=== PATIENT | female | born 1950 | race Caucasian/White ===

== ENCOUNTER → 2023-07-11 13:23 | Outpatient (CLI) | payer MEDICARE, SELFPAY ==
--- NOTE | 2023-07-11 13:26 | DI.RAD.S_ITS ---
PROCEDURE: XR CHEST 2V INDICATIONS: abnormal EKG, MASON, worsening SOB, hx of tobacco TECHNIQUE: 2 views of the chest were acquired. COMPARISON: None. FINDINGS: Surgical changes and devices: None. Lungs and pleura: Right lower lobe airspace opacity. Mediastinum: Mediastinal contours are normal. Heart size is normal. Bones and chest wall: No suspicious bony abnormalities. Soft tissues appear unremarkable. IMPRESSION: Right lower lobe airspace opacity. Consider chest CT for confirmation in the absence of fever or leukocytosis in order to exclude malignancy. Dictated by: Doni De Oliveira M.D. on 07/11/2023 at 15:38 Approved by: Doni De Oliveira M.D. on 07/11/2023 at 15:44
== END ==
LOC: RAD 13:26
PROVIDERS: PCP Family Medicine; Referring Provider Family Medicine; Visit Provider Family Medicine
DX: R91.8 Other nonspecific abnormal finding of lung field (principal); R06.09 Other forms of dyspnea; R60.0 Localized edema; R94.31 Abnormal electrocardiogram [ECG] [EKG]; R63.4 Abnormal weight loss; Z87.891 Personal history of nicotine dependence
CPT/HCPCS: 71046

== ENCOUNTER → 2023-07-13 14:49 | Outpatient (CLI) | payer MEDICARE, SELFPAY ==
--- NOTE | 2023-07-13 14:51 | DI.CT.S_ITS ---
PROCEDURE: CT CHEST WO CON INDICATIONS: SOB, hx tobacco, abnormal CXR TECHNIQUE: Noncontrast 5 mm thick sections acquired from the pulmonary apices to the posterior costophrenic angles. 1 mm lung window, 5 mm thick coronal and sagittal and 7 mm axial MIP reformats were then acquired. For radiation dose reduction, the following was used: automated exposure control, adjustment of mA and/or kV according to patient size. COMPARISON: [facility], CR, XR CHEST 2V, 07/11/2023, 13:34. FINDINGS: Image quality: Diagnostic. Lower Neck: No enlarged lymph nodes. Thyroid: No thyroid nodules which require sonographic follow up, per consensus guidelines. Axillae: No enlarged lymph nodes. Chest Wall: Unremarkable. Bones: No suspicious osseous lesion. Lungs and Pleura: No pneumothorax or pleural effusions. Severe emphysematous change. No acute airspace opacity. Secretions in the lower trachea. Areas of bronchial wall thickening. No significant bronchiectasis. No mass or significant pulmonary nodules. Heart: Heart size is normal. Mild coronary artery calcifications. No pericardial effusion. Thoracic Vessels: The aorta and pulmonary arteries demonstrate normal size. Mediastinum and [place]: No enlarged lymph nodes. Esophagus: No wall thickening. No hiatal hernia. Upper Abdomen: Low-density cyst at the superior pole of the left kidney. IMPRESSION: 1. No acute airspace opacity. No pleural effusion. 2. Severe emphysematous change. Areas of bronchial wall thickening. Secretions in the trachea. This could be due to chronic bronchitis. 3. No adenopathy. No mass or significant pulmonary nodules. Dictated by: Edinson Gamez M.D. on 07/13/2023 at 16:13 Approved by: Edinson Gamez M.D. on 07/13/2023 at 16:20
[2023-07-13 15:22] LABS: Basophils Absolute Auto 0 /uL (0-100); Basophils Percent Auto 0.6 % (0-2); Eosinophils Absolute Auto 100 /uL (0-450); Hematocrit 51.6 % (36-46); Hemoglobin 17.2 g/dL (12.0-16.0); Lymphocytes Absolute Auto 700 /uL (1100-4500); Lymphocytes Percent Auto 11.1 % (25-40); Mean Corpuscular HGB Conc 33.4 % (30-36); Mean Corpuscular Hemoglobin 32.2 PG (26-34); Mean Corpuscular Volume 96.6 fL (80-100); Monocytes Absolute Auto 500 /uL (0-900); Monocytes Percent Auto 7.4 % (3-14); Neutrophils Absolute Auto 5200 /uL (1500-7000); Neutrophils Percent Auto 79.9 % (50-75); Platelet Count 206 X10^3/uL (150-400); Red Blood Cell Count 5.34 X10^6/uL (4.0-5.2); Red Cell Distribution Width 15.2 % (11.6-14.8); White Blood Cell Count 6.5 X10^3/uL (4.5-11.0)
[2023-07-13 15:32] LABS: Hemoglobin A1C% w Est Avg Glu 6.1 % (4.0-6.0)
[2023-07-13 15:44] LABS: Add Manual Diff / Slide Review SLIDE REVIEW
[2023-07-13 15:46] LABS: Anisocytosis 1+
[2023-07-13 16:02] LABS: Alanine Aminotransferase 36 IU/L (<35); Albumin 4.1 g/dL (3.5-5.0); Albumin Globulin Ratio 1.5 (1.0-2.8); Alkaline Phosphatase 72 U/L (38-126); Aspartate Aminotransferase 50 IU/L (14-36); BUN Creatinine Ratio 38.7 (6-22); Bilirubin Total 1.1 mg/dL (0.2-1.3); Blood Urea Nitrogen 24 mg/dL (7-17); Calcium 8.9 mg/dL (8.4-10.2); Carbon Dioxide 37 mmol/L (22-32); Chloride 102 mmol/L (98-107); Estimated Glomerular Filt Rate > 60 mL/min (>60); Globulin 2.8 g/dL (1.7-4.1); Glucose 124 mg/dL (80-110); HEMOLYSIS < 15 (0-50); Potassium 4.3 mmol/L (3.4-5.1); Sodium 142 mmol/L (137-145); Total Protein 6.9 g/dL (6.3-8.2)
[2023-07-13 16:06] LABS: NT-proBNP (BNP-Adult 18+) 7600 pg/mL (<125)
== END ==
LOC: CT 14:50
PROVIDERS: PCP Family Medicine; Referring Provider Family Medicine; Visit Provider Family Medicine
DX: Z87.891 Personal history of nicotine dependence (principal); R06.09 Other forms of dyspnea; R60.0 Localized edema; R93.89 Abnormal findings on diagnostic imaging of other specified body structures; R94.31 Abnormal electrocardiogram [ECG] [EKG]; R00.0 Tachycardia, unspecified
CPT/HCPCS: 36415; 71250; 80053; 83036; 83880; 84443; 85025

== ENCOUNTER 2023-07-20 15:25 | Inpatient (IN) | payer MEDICARE, SELFPAY ==
[2023-07-20] VITALS (12 sets, daily range): BP systolic 111–144; BP diastolic 75–96; PULSE 64–112; RESP 15–34; TEMP 36.3–36.6; O2SAT 75–100; BMI 24.5
--- NOTE | 2023-07-20 15:40 | DI.RAD.S_ITS ---
PROCEDURE: XR CHEST 1V INDICATIONS: Shortness of breath TECHNIQUE: One view of the chest was acquired. COMPARISON: [facility], CR, XR CHEST 2V, 07/11/2023, 13:34. FINDINGS: Surgical changes and devices: None. Lungs and pleura: Lungs are clear. No pleural effusions or pneumothorax. Mediastinum: Mediastinal contours appear normal. Heart size is normal. Bones and chest wall: No suspicious bony lesions. Overlying soft tissues appear unremarkable. IMPRESSION: No acute cardiopulmonary abnormality is seen. Dictated by: April Gabriel M.D. on 07/20/2023 at 16:34 Approved by: April Gabriel M.D. on 07/20/2023 at 16:34
--- NOTE | 2023-07-20 15:49 | ED.GENADULT ---
HPI - General Adult General Chief complaint: Shortness of Breath/Dyspnea Stated complaint: low O2 sats, sent by Dr Mahajan Time Seen by Provider: 07/20/23 15:44 Source: patient Mode of arrival: Ambulatory History of Present Illness HPI narrative: Patient is a 73-year-old female who was at her normal state of health until approximately 1 month ago when she states she started to have increasing worsening shortness of breath with exertion. No chest pain. No fevers. No cough. She also noticed some lower extremity swelling. About 1 week ago she went to go see her primary doctor about these symptoms. She was started on Lasix. This morning was her last dose of Lasix. She had a follow-up with her primary doctor today. She was sent in the emergency department because of tachypnea, hypoxia and lower extremity swelling. Upon arrival here in the emergency department she was found to be hypoxic with the oxygen saturations in the 70s. She was placed on non-rebreather which improved her symptoms tremendously. She states that she has started to have to use a walker because of the shortness of breath. She denies any diagnosis of congestive heart failure. States she has never had a echocardiogram. Her problem list does include a diagnosis of CHF. Related Data Previous Rx's Medication Instructions Recorded furosemide 20 mg tablet (Lasix) 20 mg PO DAILY #5 tabs 07/15/23 Allergies Allergy/AdvReac Type Severity Reaction Status Date / Time No Known Allergies Allergy Verified 07/20/23 15:05 Review of Systems Review of Systems ROS Unobtainable: All systems reviewed & are unremarkable except as noted in HPI and below Patient History Social History Smoking Status: Former smoker Smoking Status: Former smoker Substance Use Type: does not use Exam Initial Vital Signs Initial Vital Signs: Vital Signs Temperature 97.9 F 07/20/23 15:34 Pulse Rate 112 H 07/20/23 15:34 Respiratory Rate 34 H 07/20/23 15:34 Blood Pressure 132/96 H 07/20/23 15:34 Pulse Oximetry 75 L 07/20/23 15:34 Oxygen Delivery Method Room Air 07/20/23 15:34 Oxygen Flow Rate 15 07/20/23 15:34 Const General: cooperative HENMT Head: normal to inspection and normocephalic Resp Effort & Inspection: no cough, labored, respiratory distress, no retractions and tachypneic Auscultation: crackles Cardio Rate: regular rate Rhythm: regular rhythm GI Inspection: normal to inspection and non-distended Skin General: no rashes or lesions noted Neuro General: patient alert and patient awake Extrem General: capillary refill normal and edema Course Orders Ordered: ED Orders 07/20/23 15:39 Complete Blood Count AUTO DIFF Stat Comprehensive Metabolic Panel Stat Lactate (Lactic Acid) Stat NT-proBNP (BNP-Adult 18+) Stat Prothrombin Time INR Stat Troponin I Stat 07/20/23 15:40 XR chest 1V Stat EKG-12 Lead Stat Measure peak expiratory flow ONCE RT Consult Eval and Treat NOW Discontinued Medications Furosemide 60 mg/ Sodium (Chloride) 56 mls @ 112 mls/hr IV NOW ONE Stop: 07/20/23 15:52 Last Infusion: 07/20/23 16:40 Dose: Infused Documented By: Admin: 07/20/23 16:04 Dose: 112 mls/hr Documented By: Vital Signs Vital signs: Vital Signs - 8 hr 07/20/23 15:34 07/20/23 15:34 07/20/23 15:44 Temperature 97.9 F Pulse Rate 112 H 102 H Respiratory Rate 34 H 25 H Blood Pressure 132/96 H Pulse Oximetry 75 L 100 94 Oxygen Delivery Method Room Air Non -Rebreather Room Air Oxygen Flow Rate 15 07/20/23 15:54 07/20/23 16:00 07/20/23 16:00 Temperature Pulse Rate 79 Respiratory Rate 22 Blood Pressure 111/79 Pulse Oximetry 93 99 Oxygen Delivery Method Nasal Cannula Nasal Cannula Oxygen Flow Rate 1 1 07/20/23 16:30 07/20/23 16:40 07/20/23 16:40 Temperature Pulse Rate 64 77 Respiratory Rate 17 22 Blood Pressure 133/81 Pulse Oximetry 99 98 Oxygen Delivery Method Nasal Cannula Oxygen Flow Rate 1 07/20/23 17:00 07/20/23 17:00 Temperature Pulse Rate 66 Respiratory Rate 15 Blood Pressure 130/76 Pulse Oximetry 99 Oxygen Delivery Method Nasal Cannula Oxygen Flow Rate 1 Medical Decision Making Medical Records Medical records reviewed: Yes I reviewed the patient's medical records. Lab Data Lab results reviewed: Yes I reviewed the patient's lab results. 07/20/23 15:39 07/20/23 15:39 Labs: Lab Results 07/20/23 Range/Units 15:39 WBC 5.5 (4.5-11.0) X10^3/uL RBC 5.30 H (4.0-5.2) X10^6/uL Hgb 16.9 H (12.0-16.0) g/dL Hct 50.5 H (36-46) % MCV 95.3 (80-100) fL MCH 32.0 (26-34) PG MCHC 33.5 (30-36) % RDW 15.1 H (11.6-14.8) % Plt Count 205 (150-400) X10^3/uL Neut % (Auto) 80.7 H (50-75) % Lymph % (Auto) 11.5 L (25-40) % [place] % (Auto) 6.5 (3-14) % Eos % (Auto) 1.1 L (2-4) % Baso % (Auto) 0.2 (0-2) % Neut # (Auto) 4400 (8449-2734) /uL Lymph # (Auto) 600 L (8599-1970) /uL [place] # (Auto) 400 (0-900) /uL Eos # (Auto) 100 (0-450) /uL Baso # (Auto) 0 (0-100) /uL PT 11.5 (9.4-12.5) SECONDS INR 1.0 (0.9-1.3) Sodium 139 (137-145) mmol/L Potassium 4.5 (3.4-5.1) mmol/L Chloride 98 (98-107) mmol/L Carbon Dioxide 38 H (22-32) mmol/L BUN 27 H (7-17) mg/dL Creatinine 0.64 (0.52-1.04) mg/dL Estimated GFR > 60 (>60) mL/min BUN/Creatinine Ratio 42.2 H (6-22) Glucose 109 (80-110) mg/dL Lactate 1.7 (0.7-2.1) mmol/L Calcium 8.7 (8.4-10.2) mg/dL Total Bilirubin 1.4 H (0.2-1.3) mg/dL AST 60 H (14-36) IU/L ALT 31 (<35) IU/L Alkaline Phosphatase 67 (38-126) U/L Troponin I 0.024 (0.01-0.034) ng/mL NT-Pro-B Natriuret Pep 7370 H (<125) pg/mL Total Protein 7.4 (6.3-8.2) g/dL Albumin 4.3 (3.5-5.0) g/dL Globulin 3.1 (1.7-4.1) g/dL Albumin/Globulin Ratio 1.4 (1.0-2.8) Imaging Data Chest x-ray: Radiologist's Impression: PROCEDURE: XR CHEST 1V INDICATIONS: Shortness of breath TECHNIQUE: One view of the chest was acquired. COMPARISON: [facility], , XR CHEST 2V, 07/11/2023, 13:34. FINDINGS: Surgical changes and devices: None. Lungs and pleura: Lungs are clear. No pleural effusions or pneumothorax. Mediastinum: Mediastinal contours appear normal. Heart size is normal. Bones and chest wall: No suspicious bony lesions. Overlying soft tissues appear unremarkable. IMPRESSION: No acute cardiopulmonary abnormality is seen. ECG Data Attestation: I personally reviewed and interpreted this ECG as follows: Interpretation: Sinus rhythm Ventricular rate is 79 Normal axis Normal QRS Normal QTC No ST T wave changes MDM Narrative Medical decision making narrative: Patient states that she feels much better on oxygen here in the ER. She does have bilateral lower extremity edema. Patient was given Lasix. She has diuresed. I suspect that the diagnosis of CHF on her problem list is a clinical diagnosis as the patient has not had an echocardiogram. Her BNP is slightly elevated. Low suspicion that this is pneumonia. She has a nonischemic EKG. Plan will be to admit to the hospital for continued diuresis and echocardiogram. Discussed the case with Dr. Pollack who is the hospitalist on-call who will admit. Discussed the need for admission with the patient who expressed understanding and agreement as well. Discharge Plan Departure Patient Disposition: Admitted As Inpatient Clinical Impression: Edema, peripheral, Hypoxia Admit Date/Time: 07/20/23 17:17 Admit Provider: Sumit Pollack
[2023-07-20 15:55] LABS: Prothrombin Time 11.5 SECONDS (9.4-12.5)
[2023-07-20 15:56] LABS: Add Manual Diff / Slide Review NO; Basophils Absolute Auto 0 /uL (0-100); Basophils Percent Auto 0.2 % (0-2); Eosinophils Absolute Auto 100 /uL (0-450); Eosinophils Percent Auto 1.1 % (2-4); Hematocrit 50.5 % (36-46); Hemoglobin 16.9 g/dL (12.0-16.0); Lymphocytes Absolute Auto 600 /uL (1100-4500); Lymphocytes Percent Auto 11.5 % (25-40); Mean Corpuscular HGB Conc 33.5 % (30-36); Mean Corpuscular Volume 95.3 fL (80-100); Monocytes Absolute Auto 400 /uL (0-900); Monocytes Percent Auto 6.5 % (3-14); Neutrophils Absolute Auto 4400 /uL (1500-7000); Neutrophils Percent Auto 80.7 % (50-75); Platelet Count 205 X10^3/uL (150-400); Red Cell Distribution Width 15.1 % (11.6-14.8); White Blood Cell Count 5.5 X10^3/uL (4.5-11.0)
[2023-07-20 16:03] LABS: Lactate (Lactic Acid) 1.7 mmol/L (0.7-2.1)
[2023-07-20] MEDS: FUROSEMIDE 60 MG in SODIUM CHLORIDE 0.9% 50 ML 112 MG IV (16:04)
[2023-07-20 16:05] LABS: Alanine Aminotransferase 31 IU/L (<35); Albumin 4.3 g/dL (3.5-5.0); Albumin Globulin Ratio 1.4 (1.0-2.8); Alkaline Phosphatase 67 U/L (38-126); Aspartate Aminotransferase 60 IU/L (14-36); BUN Creatinine Ratio 42.2 (6-22); Bilirubin Total 1.4 mg/dL (0.2-1.3); Blood Urea Nitrogen 27 mg/dL (7-17); Calcium 8.7 mg/dL (8.4-10.2); Chloride 98 mmol/L (98-107); Estimated Glomerular Filt Rate > 60 mL/min (>60); Globulin 3.1 g/dL (1.7-4.1); Glucose 109 mg/dL (80-110); Potassium 4.5 mmol/L (3.4-5.1); Sodium 139 mmol/L (137-145); Total Protein 7.4 g/dL (6.3-8.2)
[2023-07-20 16:11] LABS: Carbon Dioxide 38 mmol/L (22-32); HEMOLYSIS 76 (0-50)
[2023-07-20 16:16] LABS: NT-proBNP (BNP-Adult 18+) 7370 pg/mL (<125); Troponin I 0.024 ng/mL (0.01-0.034)
--- NOTE | 2023-07-20 17:54 | DI.ECHO.S_ITS ---
[facility] : : [address] : : [place] : : [id number] : : Phone: [phone] Echocardiogram Report + + :Name: FACUNDO PITTS Study Date: 07/21/2023 Height: 61 in : :[facility] ReadingLocation: Weight: 130 lb : : Gender: Female BSA: 1.6 m2 : :: 1950 Age: 73 yrs BP: 115/71 mmHg: :Reason For Study: DYSPNEA : :Ordering Physician: MARITZA : :BARRY Performed By: Arelis Byrne : :Referring: BARRY SALAS L : + + Interpretation Summary Normal sinus rhythm. Normal LV size and wall thickness. Mildly reduced wall motion and LV systolic function. Ejection fraction is 45-50%. Stage I diastolic dysfunction. Severe RV dilation with severely reduced RV systolic function. D-shaped LV in systole and diastole characterized by right ventricular pressure overload. Otherwise normal chamber sizes. 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 Estimated PA systolic pressure is 59 mm hg assuming RA pressure of 15 mm hg. No prior echo available for comparison. Procedure: A two-dimensional transthoracic echocardiogram with color flow and Doppler was performed. The study quality was technically adequate. There is no prior echocardiogram noted for this patient. The patient was in sinus bradycardia with heart rates between 55-68 bpm during the exam. Left Ventricle: The left ventricle is normal in size and wall thickness. The ejection fraction is estimated to be 45-50%. Right Ventricle: The right ventricle is severely dilated. Right ventricular systolic function is severely reduced. Atria: The left atrial size is normal. The right atrium is mild to moderately dilated. There is no Doppler evidence for an interatrial shunt. Mitral Valve: The mitral valve leaflets appear mildly thickened, but open well. There is mild mitral regurgitation. Aortic Valve: The aortic valve is trileaflet. The aortic valve opens well. There is no aortic valve stenosis. No aortic regurgitation is present. Tricuspid Valve: The tricuspid valve leaflets are thin and pliable. There is mild tricuspid regurgitation. The right ventricular systolic pressure is estimated to be at least 59 mmHg based on an estimated right atrial pressure of 15 mm Hg. Pulmonic Valve: The pulmonic valve is not well seen, but is grossly normal. There is trace pulmonic regurgitation. Great Vessels: The aortic root is normal size. The dimensions of the ascending aorta are normal. The IVC is dilated (diameter is greater than 2.1 cm) and it collapses less than 50% with a sniff. This suggests a high right atrial pressure of 15 mm Hg. Pericardium/ Pleura There is no pericardial effusion. There is no pleural effusion. MMode/2D Measurements & Calculations LVIDd: 4.0 cm LVOT diam: 2.0 cm LVIDs: 3.1 cm Ao root diam: 2.6 cm FS: 22.9 % asc Aorta Diam: 2.9 cm EPSS: 0.56 cm IVSd: 0.72 cm LVPWd: 0.70 cm LV kaur. diameter/BSA (cm/m^2): 2.5 LV sys. diameter/BSA (cm/m^2): 2.0 LA A2 area: 15.0 cm2 RA long axis: 5.6 cm LA A4 area: 9.9 cm2 RA area: 16.7 cm2 LA length (vol): 4.2 cm RA vol: 42.2 ml LA vol: 30.0 ml RA : 26.8 ml/m2 LA vol index: 19.1 ml/m2 IVC diam: 2.4 cm RVD1 (basal): 4.7 cm RVD2 (mid): 3.9 cm TAPSE: 1.3 cm Doppler Measurements & Calculations Ao V2 max: 69.2 cm/sec LVOT Max Torin: 48.1 cm/sec Ao V2 mean: 53.3 cm/sec LV V1 max P.92 mmHg Ao max P.9 mmHg LV V1 VTI: 10.5 cm Ao mean P.2 mmHg PAUL(I,D): 2.0 cm2 Ao V2 VTI: 16.0 cm PAUL(V,D): 2.1 cm2 sev ratio: 0.66 PAUL indexed to BSA (cm^2/m^2): 1.3 MV E max torin: 47.0 cm/sec TR max torin: 333.5 cm/sec MV A max torin: 72.3 cm/sec TR max P.5 mmHg MV E/A: 0.65 PA V2 max: 69.5 cm/sec Med Peak E' Torin: 3.2 cm/sec PA V2 mean: 44.5 cm/sec E/E' med: 14.6 PA mean P.88 mmHg Lat Peak E' Torin: 5.6 cm/sec PA pr(Accel): 51.6 mmHg E/E' lat: 8.4 E/e' average: 11.5 MV dec time: 0.24 sec SV(LVOT): 31.9 ml Electronically signed by: Ruth Mabry M.D. on [place] Physician:07/21/2023 12:31 PM
--- NOTE | 2023-07-20 17:54 | PM.HP.1 ---
History of Present Illness History of Present Illness Date Patient Seen: 07/20/23 Time Patient Seen: 17:54 Chief complaint: low O2 sats, sent by Dr Mahajan Narrative: The patient was a 73-year-old female with no past medical history he was not seen a doctor in many years. She presents today with progressive weight gain over the last 2 weeks, massive leg edema, and severe dyspnea with exertion. Her dyspnea has been worsening. Upon arrival in the emergency department her SpO2 was 70% on room air. She also notes some degree of orthopnea but denies any episodes of chest pain. She notes that she would lost 40 lb over 4 months, it is unclear if this was intentional. She then gained back about 20 lb of presumed water weight in the last 2 weeks. She denies any medications that she is taken in the past in his had no medical problems identified. No recent URI symptoms are reported including rhinorrhea, cough, fevers, or sore throat. She denies any diarrhea, blood per rectum, no fevers, chills, or urinary symptoms. In the emergency department she was given Lasix and chest x-ray confirmed relatively clear lungs. [facility] Social History Smoking Status: Former smoker Meds Home Medications and Allergies Home Medications Medication Instructions Recorded Confirmed Type furosemide 20 mg tablet (Lasix) 20 mg PO DAILY #5 tabs 07/15/23 07/20/23 Rx Allergies Allergy/AdvReac Type Severity Reaction Status Date / Time No Known Allergies Allergy Verified 07/20/23 15:05 Review of Systems Review of Systems Narrative: All else reviewed and otherwise unremarkable except as noted in the history and physical. Exam Vital Signs (past 8 hours): - 07/20/23 15:34 07/20/23 15:34 07/20/23 15:44 Temperature 97.9 F Pulse Rate 112 H 102 H Respiratory Rate 34 H 25 H Blood Pressure 132/96 H Pulse Oximetry 75 L 100 94 Oxygen Delivery Method Room Air Non -Rebreather Room Air Oxygen Flow Rate 15 07/20/23 15:54 07/20/23 16:00 07/20/23 16:00 Temperature Pulse Rate 79 Respiratory Rate 22 Blood Pressure 111/79 Pulse Oximetry 93 99 Oxygen Delivery Method Nasal Cannula Nasal Cannula Oxygen Flow Rate 1 1 07/20/23 16:30 07/20/23 16:40 07/20/23 16:40 Temperature Pulse Rate 64 77 Respiratory Rate 17 22 Blood Pressure 133/81 Pulse Oximetry 99 98 Oxygen Delivery Method Nasal Cannula Oxygen Flow Rate 1 07/20/23 17:00 07/20/23 17:00 07/20/23 17:18 Temperature Pulse Rate 66 Respiratory Rate 15 Blood Pressure 130/76 Pulse Oximetry 99 98 Oxygen Delivery Method Nasal Cannula Room Air Oxygen Flow Rate 1 Oxygen Delivery Method Room Air Oxygen Flow Rate 1 Narrative Exam Narrative: NAD, alert and oriented, fluent speech, calm. She is somewhat pale in appearance. Normocephalic skull, EOMI, anicteric sclera, symmetric pupils. Oropharynx unremarkable, no droop. Neck supple, midline trachea, no adenopathy. Lungs with basilar crackles, normal rate and effort. Heart regular, no murmur gallop or rub. Abdomen is soft, non distended and non tender. Extremities are notable for massive pitting edema of both legs going up to the thighs Skin is free of rash or lesions. Skin is pale in appearance. Joints are not swollen or deformed. Judgment appears to be normal. Objective ECG Impression: NSR, no acute changes. Imaging Chest x-ray: Radiologist's impression: Lungs are clear. CT scan - chest: Radiologist's impression: 1. No acute airspace opacity. No pleural effusion. 2. Severe emphysematous change. Areas of bronchial wall thickening. Secretions in the trachea. This could be due to chronic bronchitis. 3. No adenopathy. No mass or significant pulmonary nodules. This study was performed on July 12. Labs 07/20/23 15:39 07/20/23 15:39 Labs: Laboratory Results - last 24 hr 07/20/23 15:39 WBC 5.5 RBC 5.30 H Hgb 16.9 H Hct 50.5 H MCV 95.3 MCH 32.0 MCHC 33.5 RDW 15.1 H Plt Count 205 Neut % (Auto) 80.7 H Lymph % (Auto) 11.5 L [place] % (Auto) 6.5 Eos % (Auto) 1.1 L Baso % (Auto) 0.2 Neut # (Auto) 4400 Lymph # (Auto) 600 L [place] # (Auto) 400 Eos # (Auto) 100 Baso # (Auto) 0 PT 11.5 INR 1.0 Sodium 139 Potassium 4.5 Chloride 98 Carbon Dioxide 38 H BUN 27 H Creatinine 0.64 Estimated GFR > 60 BUN/Creatinine Ratio 42.2 H Glucose 109 Lactate 1.7 Calcium 8.7 Total Bilirubin 1.4 H AST 60 H ALT 31 Alkaline Phosphatase 67 Troponin I 0.024 NT-Pro-B Natriuret Pep 7370 H Total Protein 7.4 Albumin 4.3 Globulin 3.1 Albumin/Globulin Ratio 1.4 Assessment & Plan Assessment & Plan narrative: 1. Acute hypoxic respiratory failure, present on admission and active. 2. Probable COPD exacerbation, present on admission and active. 3. Massive edema consistent with either heart failure or cor pulmonale, present on admission and active. 4. Remote history of tobacco dependence having quit 24 years ago. Plan: -we will diurese with Lasix IV q.12 hours. -we will treat COPD with steroids and bronchodilators. -2D echo to assess LV function and rule out pulmonary hypertension. She is full resuscitation. She was admitted inpatient status and there is an anticipation of necessity of 2 midnights of hospital level surfaces. Time Spent With Patient Time with patient: 30 to 49 minutes with 50% spent counseling/coordinating care Quality MIPS - Admit I confirm the patient?s Advance Care Plan is present, Code status is documented, Surrogate decision maker is in patient?s record [If Yes, STOP here]: Yes MIPS - Meds 'Current medications' to include all prescriptions, [id number] products, herbals, cannabis/cannabidiol products, and vitamin/mineral/dietary (nutritional) supplements. I have utilized all available resources to obtain, update, or review the patient?s current medications. [If Yes, STOP here]: Yes
[2023-07-20] MEDS: ALBUTEROL/IPRATROPIUM 3 ML AMPUL INH (20:32)
[2023-07-20] MEDS: DOXYCYCLINE HYCLATE 100 MG TABLET PO (21:09)
[2023-07-20] MEDS: HEPARIN 5,000 UNIT/ML VIAL 5000 UNIT SUBCUT (21:10)
[2023-07-21] VITALS (8 sets, daily range): BP systolic 103–131; BP diastolic 59–80; PULSE 62–96; RESP 18–23; TEMP 35.9–36.8; O2SAT 91–97
[2023-07-21] MEDS: methylPREDNISolone 125 MG/2 ML VIAL 60 MG IV ×4 (00:17→18:28)
[2023-07-21 04:13] LABS: Blood Urea Nitrogen 27 mg/dL (7-17); Calcium 8.3 mg/dL (8.4-10.2); Chloride 94 mmol/L (98-107); Estimated Glomerular Filt Rate > 60 mL/min (>60); Glucose 98 mg/dL (80-110); HEMOLYSIS < 15 (0-50); Potassium 4.2 mmol/L (3.4-5.1); Sodium 139 mmol/L (137-145)
[2023-07-21 04:20] LABS: Carbon Dioxide 39 mmol/L (22-32)
[2023-07-21 04:32] LABS: Add Manual Diff / Slide Review NO; Basophils Absolute Auto 0 /uL (0-100); Basophils Percent Auto 0.7 % (0-2); Eosinophils Absolute Auto 0 /uL (0-450); Eosinophils Percent Auto 0.8 % (2-4); Hematocrit 47.3 % (36-46); Hemoglobin 15.9 g/dL (12.0-16.0); Lymphocytes Absolute Auto 300 /uL (1100-4500); Lymphocytes Percent Auto 8.3 % (25-40); Mean Corpuscular HGB Conc 33.6 % (30-36); Mean Corpuscular Hemoglobin 32.1 PG (26-34); Mean Corpuscular Volume 95.6 fL (80-100); Monocytes Absolute Auto 100 /uL (0-900); Monocytes Percent Auto 2.5 % (3-14); Neutrophils Absolute Auto 3700 /uL (1500-7000); Neutrophils Percent Auto 87.7 % (50-75); Platelet Count 163 X10^3/uL (150-400); Red Blood Cell Count 4.94 X10^6/uL (4.0-5.2); Red Cell Distribution Width 14.8 % (11.6-14.8); White Blood Cell Count 4.2 X10^3/uL (4.5-11.0)
--- NOTE | 2023-07-21 07:39 | P.PN_ITS ---
Subjective Subjective Interval history: She feels better today. Her leg edema is improving. She is still on 2 L of oxygen with SpO2 of 88%. She denies any chest pain. Exam Vital Signs (past 8 hours): - 07/21/23 00:00 07/21/23 04:40 Temperature 97.6 F 97.9 F Pulse Rate 72 70 Respiratory Rate 19 19 Blood Pressure 122/75 115/71 Pulse Oximetry 92 92 Oxygen Flow Rate 2 Oxygen Delivery Method Nasal Cannula Oxygen Flow Rate 2 Narrative Exam Narrative: NAD, alert and oriented. Fluent speech. Lungs are clear, normal rate and effort. She does have some rales but less than yesterday. Heart is regular, no murmur gallop or rub. Abdomen is soft, non distended. Extremities are with pitting edema bilaterally to above the knees, but improved from yesterday. Objective ECG Impression: NSR, no acute changes. Imaging Multiple studies:: Radiologist's impression: Chest x-ray: Radiologist's impression: Lungs are clear. CT scan - chest: Radiologist's impression: 1. No acute airspace opacity. No pleural effusion. 2. Severe emphysematous change. Areas of bronchial wall thickening. Secretions in the trachea. This could be due to chronic bronchitis. 3. No adenopathy. No mass or significant pulmonary nodules. Labs 07/21/23 03:25 07/21/23 03:25 Labs: Laboratory Results - last 24 hr 07/20/23 07/20/23 07/21/23 15:39 18:20 03:25 WBC 5.5 4.2 L RBC 5.30 H 4.94 Hgb 16.9 H 15.9 Hct 50.5 H 47.3 H MCV 95.3 95.6 MCH 32.0 32.1 MCHC 33.5 33.6 RDW 15.1 H 14.8 Plt Count 205 163 Neut % (Auto) 80.7 H 87.7 H Lymph % (Auto) 11.5 L 8.3 L [place] % (Auto) 6.5 2.5 L Eos % (Auto) 1.1 L 0.8 L Baso % (Auto) 0.2 0.7 Neut # (Auto) 4400 3700 Lymph # (Auto) 600 L 300 L [place] # (Auto) 400 100 Eos # (Auto) 100 0 Baso # (Auto) 0 0 PT 11.5 INR 1.0 Sodium 139 139 Potassium 4.5 4.2 Chloride 98 94 L Carbon Dioxide 38 H 39 H BUN 27 H 27 H Creatinine 0.64 0.73 Estimated GFR > 60 > 60 BUN/Creatinine Ratio 42.2 H 37.0 H Glucose 109 98 Lactate 1.7 Calcium 8.7 8.3 L Total Bilirubin 1.4 H AST 60 H ALT 31 Alkaline Phosphatase 67 Troponin I 0.024 0.020 NT-Pro-B Natriuret Pep 7370 H Total Protein 7.4 Albumin 4.3 Globulin 3.1 Albumin/Globulin Ratio 1.4 [facility] Social History household members: none Smoking Status: Former smoker alcohol intake: never Assessment & Plan Assessment & Plan narrative: 1. Acute hypoxic respiratory failure, present on admission and active. 2. Probable COPD exacerbation, present on admission and active. 3. Massive edema consistent with either heart failure or cor pulmonale, present on admission and active. 4. Remote history of tobacco dependence having quit 24 years ago. Not present on admission and active. Plan: -we will continue to diurese with Lasix IV q.12 hours. -we will treat COPD with steroids and bronchodilators. -2D echo to assess LV function and rule out pulmonary hypertension. Complete with read pending. (my preliminary read indicates probable normal LV function and hypokinetic RV function). She is full resuscitation. She was admitted inpatient status and there is an anticipation of necessity of 2 midnights of hospital level services. She requires at least 1 additional midnight of medical care in the hospital for ongoing diuresis and treatment of hypoxia.
[2023-07-21] MEDS: ALBUTEROL/IPRATROPIUM 3 ML AMPUL INH (08:06)
[2023-07-21] MEDS: DOXYCYCLINE HYCLATE 100 MG TABLET PO ×2 (09:15→20:23)
[2023-07-21] MEDS: HEPARIN 5,000 UNIT/ML VIAL 5000 UNIT SUBCUT ×2 (09:15→20:23)
--- NOTE | 2023-07-21 12:40 | CM.DANOTE ---
Initial DCP Assessment Note Pt is a 73 yo female, lives at [facility] in [place], presents with hypoxia, likely COPD exacerbation according to conversation with Dr Pollack. PCP: Sushila Watts Payer: MILLI Reviewed chart, met w/patient, introduced self and role. Patient lives in an apt at [facility] alone, indp in all aspects according to patient, does not drive. Friend Jeison P [phone] assists with driving and errands as needed. Patient uses a Brown walker with seat when she needs to carry things, otherwise no DME. Patient denies home O2, hx Hh or SNF. Asked patient if she has FREDRICK and patient denies. Offered information on how to apply for Medicaid, gave a FREDRICK paper application and information about 's insurance counseling. Patient receives approx $600 mo in income and will qualify. Patient has three adult children that live out of the area; patient reports they are not available to assist at this time. No barriers identified at this time to patient's safe discharge home w/friends to assist; close outpatient f/u recommended. R/o need for HH services closer to DC. CM team will plan to follow closely in case any DC needs or concerns arise. MARCELO Riddle Discharge Planning/Care Management CM Discharge Assessment Start: 07/21/23 12:28 Freq: Status: Active Protocol: Document 07/21/23 12:28 SOM (Rec: 07/21/23 12:40 SOM [id number]) Discharge Planning Assessment Assigned Clinical Technician MARCELO Mena DPOA/Assigned Designee Name Jeison Abbasistrom, friend Contact Information [phone] Advance Directives? No History Provided By Patient,Medical Record Prior Living Arrangements Apartment/Condo Household Members none Type of transporation used prior to Relies on Others admit Independent with ADL's Yes Is patient alert and oriented? Yes Needs Assistance With Home Chores / Shopping Barriers to Discharge No Discharge Plan Home Transportation Arrangement Friend to transport Referrals Initiated None needed Additional Comment r/o need for HH closer to discharge
--- NOTE | 2023-07-21 12:50 | DI.CT.S_ITS ---
PROCEDURE: CT ANGIO CHEST PE PROTOCOL INDICATIONS: Dyspnea TECHNIQUE: After the administration of intravenous contrast, 2 mm thick sections acquired from the pulmonary apices to the posterior costophrenic angles. For radiation dose reduction, the following was used: automated exposure control, adjustment of mA and/or kV according to patient size. COMPARISON: None. FINDINGS: Image quality: Diagnostic. Pulmonary arteries: Pulmonary arteries are normal in size, and demonstrate no intraluminal filling defects to suggest central pulmonary embolism. Lower Neck: No enlarged lymph nodes. Thyroid: No thyroid nodules which require sonographic follow up, per consensus guidelines. Axillae: No enlarged lymph nodes. Chest Wall: Unremarkable. Bones: Unremarkable. Lungs and Pleura: Moderate to severe pulmonary emphysema Heart: Heart size is normal. No pericardial effusion. Thoracic Vessels: No aortic aneurysm. Mediastinum and [place]: No enlarged lymph nodes. Esophagus: No wall thickening. No hiatal hernia. Upper Abdomen: Visualized upper abdomen solid organs and bowel loops appear normal. IMPRESSION: No evidence of pulmonary embolism, aortic dissection or aneurysm. Moderate to severe pulmonary emphysema. No nodule or pneumothorax. Approved by: Jw Chairez M.D. on 07/21/2023 at 15:21
[2023-07-22] VITALS (9 sets, daily range): BP systolic 103–118; BP diastolic 62–71; PULSE 68–98; RESP 16–20; TEMP 36.4–36.9; O2SAT 92–98
[2023-07-22] MEDS: methylPREDNISolone 125 MG/2 ML VIAL 60 MG IV ×2 (01:28→06:23)
[2023-07-22 05:54] LABS: Add Manual Diff / Slide Review NO; Basophils Absolute Auto 0 /uL (0-100); Basophils Percent Auto 0.1 % (0-2); Eosinophils Absolute Auto 0 /uL (0-450); Hematocrit 43.6 % (36-46); Hemoglobin 14.6 g/dL (12.0-16.0); Lymphocytes Absolute Auto 200 /uL (1100-4500); Lymphocytes Percent Auto 2.4 % (25-40); Mean Corpuscular HGB Conc 33.5 % (30-36); Mean Corpuscular Hemoglobin 32.2 PG (26-34); Mean Corpuscular Volume 96.2 fL (80-100); Monocytes Absolute Auto 300 /uL (0-900); Monocytes Percent Auto 2.9 % (3-14); Neutrophils Absolute Auto 9500 /uL (1500-7000); Neutrophils Percent Auto 94.6 % (50-75); Platelet Count 187 X10^3/uL (150-400); Red Blood Cell Count 4.53 X10^6/uL (4.0-5.2); Red Cell Distribution Width 15.3 % (11.6-14.8)
[2023-07-22] MEDS: HEPARIN 5,000 UNIT/ML VIAL 5000 UNIT SUBCUT ×2 (09:35→20:43)
[2023-07-22] MEDS: FUROSEMIDE 40 MG/4 ML VIAL IV ×2 (09:36→17:27)
[2023-07-22] MEDS: DOXYCYCLINE HYCLATE 100 MG TABLET PO ×2 (09:36→20:43)
[2023-07-22] MEDS: predniSONE 20 MG TABLET 40 MG PO (09:36)
[2023-07-22] MEDS: ALBUTEROL/IPRATROPIUM 3 ML AMPUL INH ×3 (09:51→19:50)
[2023-07-22 12:57] LABS: BUN Creatinine Ratio 43.7 (6-22); Blood Urea Nitrogen 38 mg/dL (7-17); Chloride 96 mmol/L (98-107); Estimated Glomerular Filt Rate > 60 mL/min (>60); Glucose 134 mg/dL (80-110); Potassium 4.2 mmol/L (3.4-5.1); Sodium 139 mmol/L (137-145)
[2023-07-22 13:03] LABS: HEMOLYSIS 17 (0-50)
[2023-07-22 13:05] LABS: Carbon Dioxide 40 mmol/L (22-32)
--- NOTE | 2023-07-22 14:06 | PC.NURSE ---
Day shift: Notified MD Guerrero of critical lab value CO2 40. Also notified MD Guerrero that MD Pollack's note from yesterday said continue IV lasix though IV lasix not ordered. MD Guerrero ordered lasix and given. Pt OOB to chair 1PA + FWW. Remains on 2-2.5L O2 via NC. Will continue to monitor.
--- NOTE | 2023-07-22 17:13 | PM.PN.1 ---
Subjective Subjective Interval history: She feels better today. Her leg edema is improving. She is still on 1-2L of O2 today. Her furosemide had not been given since in the ER, resumed today and leg swelling is improved. She denies any chest pain. Exam Vital Signs (past 8 hours): - 07/22/23 09:45 07/22/23 12:00 07/22/23 14:50 Temperature 98.4 F Pulse Rate 98 H 83 90 Respiratory Rate 20 20 20 Blood Pressure 118/63 Pulse Oximetry 92 95 93 Oxygen Delivery Method Nasal Cannula Nasal Cannula Oxygen Flow Rate 2.5 2.5 07/22/23 15:14 Temperature 97.8 F Pulse Rate 79 Respiratory Rate 20 Blood Pressure 103/62 Pulse Oximetry 98 Oxygen Delivery Method Oxygen Flow Rate Oxygen Delivery Method Nasal Cannula Oxygen Flow Rate 2.5 Narrative Exam Narrative: NAD, alert and oriented. Fluent speech. Lungs are clear, normal rate and effort. She does have some rales but less than yesterday. Heart is regular, no murmur gallop or rub. Abdomen is soft, non distended. Extremities are with pitting edema bilaterally to above the knees, but improved from yesterday. Objective Labs 07/22/23 04:37 07/22/23 04:37 Labs: Laboratory Results - last 24 hr 07/22/23 04:37 WBC 10.0 D RBC 4.53 Hgb 14.6 Hct 43.6 MCV 96.2 MCH 32.2 MCHC 33.5 RDW 15.3 H Plt Count 187 Neut % (Auto) 94.6 H Lymph % (Auto) 2.4 L [place] % (Auto) 2.9 L Eos % (Auto) 0.0 L Baso % (Auto) 0.1 Neut # (Auto) 9500 H Lymph # (Auto) 200 L [place] # (Auto) 300 Eos # (Auto) 0 Baso # (Auto) 0 Sodium 139 Potassium 4.2 Chloride 96 L Carbon Dioxide 40 H* BUN 38 H Creatinine 0.87 Estimated GFR > 60 BUN/Creatinine Ratio 43.7 H Glucose 134 H Calcium 8.0 L PFSH Social History household members: none Smoking Status: Former smoker alcohol intake: never Assessment & Plan Assessment & Plan narrative: 1. Acute hypoxic respiratory failure, present on admission and active. 2. Probable COPD exacerbation, present on admission and active. 3. Acute diastolic heart failure and R heart failure/cor pulmonale present on admission and active. 4. Remote history of tobacco dependence having quit 24 years ago. Not present on admission and active. Plan: -we will continue to diurese with Lasix IV q.12 hours. -we will treat COPD with steroids and bronchodilators. -Echocardiogram showed borderline EF, but probable massive volume overload and diastolic dysfunction. She is full resuscitation. She was admitted inpatient status and there is an anticipation of necessity of 2 midnights of hospital level services. She requires at least 1 additional midnight of medical care in the hospital for ongoing diuresis and treatment of hypoxia.
[2023-07-23] VITALS (10 sets, daily range): BP systolic 105–136; BP diastolic 58–81; PULSE 76–111; RESP 12–22; TEMP 36.1–36.6; O2SAT 88–98
[2023-07-23 05:38] LABS: Add Manual Diff / Slide Review NO; Basophils Absolute Auto 0 /uL (0-100); Basophils Percent Auto 0.1 % (0-2); Eosinophils Absolute Auto 0 /uL (0-450); Hematocrit 42.6 % (36-46); Hemoglobin 14.1 g/dL (12.0-16.0); Lymphocytes Absolute Auto 200 /uL (1100-4500); Mean Corpuscular HGB Conc 33.1 % (30-36); Mean Corpuscular Hemoglobin 31.7 PG (26-34); Mean Corpuscular Volume 95.9 fL (80-100); Monocytes Absolute Auto 600 /uL (0-900); Monocytes Percent Auto 5.8 % (3-14); Neutrophils Absolute Auto 9700 /uL (1500-7000); Neutrophils Percent Auto 92.1 % (50-75); Platelet Count 185 X10^3/uL (150-400); Red Blood Cell Count 4.45 X10^6/uL (4.0-5.2); Red Cell Distribution Width 14.9 % (11.6-14.8); White Blood Cell Count 10.5 X10^3/uL (4.5-11.0)
[2023-07-23 05:56] LABS: BUN Creatinine Ratio 51.8 (6-22); Blood Urea Nitrogen 44 mg/dL (7-17); Calcium 7.5 mg/dL (8.4-10.2); Chloride 93 mmol/L (98-107); Estimated Glomerular Filt Rate > 60 mL/min (>60); Glucose 107 mg/dL (80-110); Magnesium 1.8 mg/dL (1.6-2.3); Potassium 3.5 mmol/L (3.4-5.1); Sodium 139 mmol/L (137-145)
[2023-07-23 06:02] LABS: HEMOLYSIS 36 (0-50)
[2023-07-23 06:10] LABS: Carbon Dioxide 43 mmol/L (22-32)
[2023-07-23] MEDS: predniSONE 20 MG TABLET 40 MG PO (09:08)
[2023-07-23] MEDS: HEPARIN 5,000 UNIT/ML VIAL 5000 UNIT SUBCUT ×2 (09:08→20:40)
[2023-07-23] MEDS: acetaZOLAMIDE 250 MG TABLET PO ×2 (09:08→20:40)
[2023-07-23] MEDS: DOXYCYCLINE HYCLATE 100 MG TABLET PO ×2 (09:08→20:40)
[2023-07-23] MEDS: FUROSEMIDE 40 MG/4 ML VIAL IV ×2 (09:12→17:22)
--- NOTE | 2023-07-23 13:04 | CM.DPC ---
Addendum entered by Shira Murillo R.N. 07/23/23 14:49: Attempted to meet with patient to discuss home health options, but has been sleeping. It is also noted that she does not yet have P.T. orders. Original Note: DCP Cont: Discussed patient during team rounds. Indicated that patient is not yet ready for discharge, is still on oxygen. It is noted that patient resides here in [place], at [facility]. Notes from [facility] indicate that patient was given a Medicaid application. She is independent as far as ADLS. Has a friend, Jeison, to transport her home when stable. P: DCP to continue to follow for needs, may look into home health resources if patient is interested. Shira Murillo RN/Glass Deposition Tender
[2023-07-23] MEDS: ALBUTEROL/IPRATROPIUM 3 ML AMPUL INH ×2 (13:10→18:51)
--- NOTE | 2023-07-23 14:20 | P.PN_ITS ---
Subjective Subjective Interval history: She feels better today. Her leg edema is improving she says. She is still on 1-2L of O2 today. She denies any chest pain. Exam Vital Signs (past 8 hours): - 07/23/23 08:00 07/23/23 10:44 07/23/23 11:52 Temperature 97.7 F 97 F L Pulse Rate 95 H 85 Respiratory Rate 18 12 Blood Pressure 136/81 114/70 Pulse Oximetry 98 98 Oxygen Delivery Method Nasal Cannula Oxygen Flow Rate 2.5 4 Fraction of Inspired Oxygen 07/23/23 13:10 07/23/23 13:14 Temperature Pulse Rate Respiratory Rate Blood Pressure Pulse Oximetry 89 L 88 L Oxygen Delivery Method Nasal Cannula Oxygen Flow Rate 2 2 Fraction of Inspired Oxygen 28 Fraction of Inspired Oxygen 28 SaO2/FiO2 Ratio 317 Oxygen Delivery Method Nasal Cannula Oxygen Flow Rate 2 Narrative Exam Narrative: NAD, alert and oriented. Fluent speech. Lungs are clear, normal rate and effort. She does have some rales but less than yesterday. Heart is regular, no murmur gallop or rub. Abdomen is soft, non distended. Extremities are with pitting edema bilaterally to above the knees, stable from yesterday Objective Labs 07/23/23 04:39 07/23/23 04:39 Labs: Laboratory Results - last 24 hr 07/23/23 04:39 WBC 10.5 RBC 4.45 Hgb 14.1 Hct 42.6 MCV 95.9 MCH 31.7 MCHC 33.1 RDW 14.9 H Plt Count 185 Neut % (Auto) 92.1 H Lymph % (Auto) 2.0 L [place] % (Auto) 5.8 Eos % (Auto) 0.0 L Baso % (Auto) 0.1 Neut # (Auto) 9700 H Lymph # (Auto) 200 L [place] # (Auto) 600 Eos # (Auto) 0 Baso # (Auto) 0 Sodium 139 Potassium 3.5 Chloride 93 L Carbon Dioxide 43 H* BUN 44 H Creatinine 0.85 Estimated GFR > 60 BUN/Creatinine Ratio 51.8 H Glucose 107 Calcium 7.5 L Magnesium 1.8 PFSH Social History household members: none Smoking Status: Former smoker alcohol intake: never Assessment & Plan Assessment & Plan narrative: 1. Acute hypoxic respiratory failure, present on admission and active. 2. Probable COPD exacerbation, present on admission and active. 3. Acute diastolic heart failure and R heart failure/cor pulmonale present on admission and active. 4. Remote history of tobacco dependence having quit 24 years ago. Not present on admission and active. Plan: -we will continue to diurese with Lasix IV q.12 hours. Added diamox today with alkalosis noted with CO2 at 43 but still clinically overloaded on exam. -continue to treat COPD exacerbation with steroids and bronchodilators. -Echocardiogram showed borderline EF, but probable massive volume overload and diastolic dysfunction. She is full resuscitation. She was admitted inpatient status. Will discharge home once more fluid is able to be removed and hopefully will be discharged without the need for oxygen. May need home O2 if still on O2 and near euvolemia. She requires at least 1 additional midnight of medical care in the hospital for ongoing diuresis and treatment of hypoxia.
[2023-07-23] MEDS: SODIUM CHLORIDE 0.9% FLUSH 10 ML IV ×2 (17:23→20:40)
[2023-07-23] MEDS: ACETAMINOPHEN 325 MG TABLET 650 MG PO (17:41)
[2023-07-24 03:55] VITALS: BP 127/77; PULSE 75; RESP 16; TEMP 36.4; O2SAT 100
[2023-07-24 05:46] LABS: Add Manual Diff / Slide Review NO; Basophils Absolute Auto 0 /uL (0-100); Basophils Percent Auto 0.2 % (0-2); Eosinophils Absolute Auto 0 /uL (0-450); Hematocrit 45.3 % (36-46); Hemoglobin 14.9 g/dL (12.0-16.0); Lymphocytes Absolute Auto 300 /uL (1100-4500); Lymphocytes Percent Auto 3.4 % (25-40); Mean Corpuscular Hemoglobin 31.8 PG (26-34); Mean Corpuscular Volume 96.4 fL (80-100); Monocytes Absolute Auto 500 /uL (0-900); Monocytes Percent Auto 5.9 % (3-14); Neutrophils Absolute Auto 7300 /uL (1500-7000); Neutrophils Percent Auto 90.5 % (50-75); Platelet Count 178 X10^3/uL (150-400); White Blood Cell Count 8.1 X10^3/uL (4.5-11.0)
[2023-07-24 06:15] LABS: BUN Creatinine Ratio 40.7 (6-22); Blood Urea Nitrogen 44 mg/dL (7-17); Calcium 8.3 mg/dL (8.4-10.2); Chloride 93 mmol/L (98-107); Estimated Glomerular Filt Rate 54 mL/min (>60); Glucose 102 mg/dL (80-110); HEMOLYSIS < 15 (0-50); Potassium 4.1 mmol/L (3.4-5.1); Sodium 139 mmol/L (137-145)
[2023-07-24] MEDS: ALBUTEROL/IPRATROPIUM 3 ML AMPUL INH ×2 (06:15→20:02)
[2023-07-24 06:17] VITALS: PULSE 82; RESP 18; O2SAT 98
[2023-07-24 06:45] LABS: Carbon Dioxide 35 mmol/L (22-32)
[2023-07-24 07:00] VITALS: BP 133/79; PULSE 96; RESP 18; TEMP 36.6; O2SAT 96
[2023-07-24] MEDS: predniSONE 20 MG TABLET 40 MG PO (08:10)
[2023-07-24] MEDS: HEPARIN 5,000 UNIT/ML VIAL 5000 UNIT SUBCUT ×2 (08:10→20:28)
[2023-07-24] MEDS: DOXYCYCLINE HYCLATE 100 MG TABLET PO ×2 (08:11→20:28)
[2023-07-24] MEDS: acetaZOLAMIDE 250 MG TABLET PO ×2 (08:11→20:28)
[2023-07-24] MEDS: SODIUM CHLORIDE 0.9% FLUSH 10 ML IV ×2 (08:11→20:28)
[2023-07-24] MEDS: FUROSEMIDE 40 MG/4 ML VIAL IV ×2 (08:15→16:55)
[2023-07-24 11:00] VITALS: BP 100/62; PULSE 95; RESP 22; TEMP 36.2; O2SAT 93
--- NOTE | 2023-07-24 12:12 | PM.PN.1 ---
Subjective Subjective Interval history: She feels better today. Her leg edema is improving she says. She is still on 2L of O2 today. She denies any chest pain. Creatinine up slightly today, bicarb improved after diamox. Exam Vital Signs (past 8 hours): - 07/24/23 06:17 07/24/23 07:00 07/24/23 07:00 Temperature 97.9 F Pulse Rate 82 96 H Respiratory Rate 18 18 Blood Pressure 133/79 Pulse Oximetry 98 96 Oxygen Delivery Method Nasal Cannula Nasal Cannula Oxygen Flow Rate 3 3 07/24/23 11:00 Temperature 97.2 F L Pulse Rate 95 H Respiratory Rate 22 Blood Pressure 100/62 Pulse Oximetry 93 Oxygen Delivery Method Oxygen Flow Rate 3 Fraction of Inspired Oxygen 28 SaO2/FiO2 Ratio 317 Oxygen Delivery Method Nasal Cannula Oxygen Flow Rate 3 Narrative Exam Narrative: NAD, alert and oriented. Fluent speech. Lungs are clear, normal rate and effort. She does have some rales but less than yesterday. Heart is regular, no murmur gallop or rub. Abdomen is soft, non distended. Extremities are with pitting edema bilaterally to above the calves, improved today. Objective Labs 07/24/23 04:52 07/24/23 04:52 Labs: Laboratory Results - last 24 hr 07/24/23 04:52 WBC 8.1 RBC 4.70 Hgb 14.9 Hct 45.3 MCV 96.4 MCH 31.8 MCHC 33.0 RDW 15.0 H Plt Count 178 Neut % (Auto) 90.5 H Lymph % (Auto) 3.4 L [place] % (Auto) 5.9 Eos % (Auto) 0.0 L Baso % (Auto) 0.2 Neut # (Auto) 7300 H Lymph # (Auto) 300 L [place] # (Auto) 500 Eos # (Auto) 0 Baso # (Auto) 0 Sodium 139 Potassium 4.1 Chloride 93 L Carbon Dioxide 35 H BUN 44 H Creatinine 1.08 H Estimated GFR 54 L BUN/Creatinine Ratio 40.7 H Glucose 102 Calcium 8.3 L Magnesium 2.0 PFSH Social History household members: none Smoking Status: Former smoker alcohol intake: never Assessment & Plan Assessment & Plan narrative: 1. Acute hypoxic respiratory failure, present on admission and active. 2. Probable COPD exacerbation, present on admission and active. 3. Acute diastolic heart failure and R heart failure/cor pulmonale present on admission and active. 4. Remote history of tobacco dependence having quit 24 years ago. Not present on admission and active. Plan: -we will continue to diurese with Lasix IV q.12 hours. Added diamox with alkalosis noted with CO2 at 43 yesterday which is improved today. But creatinine starting to trend up. May be near point of maximal diuresis. If continues to worsen will likely need to switch to smaller PO dose and discharge home on home O2. -continue to treat COPD exacerbation with steroids and bronchodilators. Day 3/5 of prednisone. Consider stopping if no further improvement in hypoxia. -Echocardiogram showed borderline EF, but probable massive volume overload and diastolic dysfunction. She is full resuscitation. She was admitted inpatient status. Will discharge home once likely in the next 1-2 days. May need home O2 if still on O2 and near euvolemia. She requires at least 1 additional midnight of medical care in the hospital for ongoing diuresis and treatment of hypoxia.
--- NOTE | 2023-07-24 13:18 | CM.DPC ---
DCP Cont: Per MD, pt to have further diuresis today and pt remains on oxygen today and will attempt to wean to room air otherwise pt likely will have RT assess for new home O2 for likely discharge tomorrow Tuesday. SW met bedside with pt and explained role and she confirms that she is feeling better and is hopeful not to need new home O2 at discharge but feels she is ambulating well in room with steady gait and independent with no DME and does not feel that HH needed at this time. Pt confirms her friend can provide transport at d/c and preference is home tomorrow. Luz Kirby MSW
[2023-07-24 15:00] VITALS: BP 110/68; PULSE 105; RESP 18; TEMP 36.1; O2SAT 93
[2023-07-24 20:30] VITALS: BP 105/68; PULSE 77; RESP 19; TEMP 36.6; O2SAT 97
[2023-07-25 00:15] VITALS: PULSE 89; O2SAT 94
[2023-07-25 05:08] VITALS: BP 113/68; PULSE 90; RESP 19; TEMP 36.1; O2SAT 96
[2023-07-25 05:34] LABS: Add Manual Diff / Slide Review NO; Basophils Absolute Auto 0 /uL (0-100); Basophils Percent Auto 0.4 % (0-2); Eosinophils Absolute Auto 0 /uL (0-450); Eosinophils Percent Auto 0.1 % (2-4); Hematocrit 45.7 % (36-46); Hemoglobin 15.3 g/dL (12.0-16.0); Lymphocytes Absolute Auto 400 /uL (1100-4500); Lymphocytes Percent Auto 5.9 % (25-40); Mean Corpuscular HGB Conc 33.4 % (30-36); Mean Corpuscular Hemoglobin 32.2 PG (26-34); Mean Corpuscular Volume 96.3 fL (80-100); Monocytes Absolute Auto 600 /uL (0-900); Neutrophils Absolute Auto 5900 /uL (1500-7000); Neutrophils Percent Auto 84.6 % (50-75); Platelet Count 188 X10^3/uL (150-400); Red Blood Cell Count 4.74 X10^6/uL (4.0-5.2); Red Cell Distribution Width 15.4 % (11.6-14.8)
[2023-07-25 05:47] LABS: Blood Urea Nitrogen 47 mg/dL (7-17); Chloride 94 mmol/L (98-107); Estimated Glomerular Filt Rate > 60 mL/min (>60); Glucose 116 mg/dL (80-110); HEMOLYSIS 30 (0-50); Potassium 3.7 mmol/L (3.4-5.1); Sodium 137 mmol/L (137-145)
[2023-07-25 05:54] LABS: Carbon Dioxide 39 mmol/L (22-32)
--- NOTE | 2023-07-25 07:55 | DI.RAD.S_ITS ---
PROCEDURE: XR CHEST 1V INDICATIONS: assess for pulm edema TECHNIQUE: One view of the chest was acquired. COMPARISON: [facility], CT, CT ANGIO CHEST PE PROTOCOL, 07/21/2023, 13:05. [facility], CR, XR CHEST 1V, 07/20/2023, 15:47. FINDINGS: Surgical changes and devices: None. Lungs and pleura: Emphysematous change. Lungs are clear. No pleural effusions or pneumothorax. Mediastinum: Mediastinal contours appear normal. Heart size is normal. Bones and chest wall: No suspicious bony lesions. Overlying soft tissues appear unremarkable. IMPRESSION: COPD. No evidence acute pulmonary process. Dictated by: Jayden Whitfield M.D. on 07/25/2023 at 8:25 Approved by: Jayden Whitfield M.D. on 07/25/2023 at 8:26
[2023-07-25 08:08] VITALS: BP 125/73; PULSE 100; RESP 18; TEMP 36.7; O2SAT 97
[2023-07-25] MEDS: FUROSEMIDE 40 MG/4 ML VIAL IV (08:28)
[2023-07-25] MEDS: predniSONE 20 MG TABLET 40 MG PO (08:28)
[2023-07-25] MEDS: SODIUM CHLORIDE 0.9% FLUSH 10 ML IV (08:28)
[2023-07-25] MEDS: HEPARIN 5,000 UNIT/ML VIAL 5000 UNIT SUBCUT (08:29)
[2023-07-25] MEDS: acetaZOLAMIDE 250 MG TABLET PO (08:29)
[2023-07-25] MEDS: DOXYCYCLINE HYCLATE 100 MG TABLET PO (08:29)
[2023-07-25 09:10] VITALS: PULSE 117; RESP 18; O2SAT 96
[2023-07-25] MEDS: ALBUTEROL/IPRATROPIUM 3 ML AMPUL INH (09:10)
--- NOTE | 2023-07-25 10:08 | PM.DS.1 ---
History of Present Illness History of Present Illness Chief complaint: low O2 sats, sent by Dr Mahajan Narrative: The patient was a 73-year-old female with no past medical history he was not seen a doctor in many years. She presents today with progressive weight gain over the last 2 weeks, massive leg edema, and severe dyspnea with exertion. Her dyspnea has been worsening. Upon arrival in the emergency department her SpO2 was 70% on room air. She also notes some degree of orthopnea but denies any episodes of chest pain. She notes that she would lost 40 lb over 4 months, it is unclear if this was intentional. She then gained back about 20 lb of presumed water weight in the last 2 weeks. She denies any medications that she is taken in the past in his had no medical problems identified. No recent URI symptoms are reported including rhinorrhea, cough, fevers, or sore throat. She denies any diarrhea, blood per rectum, no fevers, chills, or urinary symptoms. In the emergency department she was given Lasix and chest x-ray confirmed relatively clear lungs. Discharge Providers Provider Date of admission: 07/20/23 17:17 Discharge Date: 07/25/23 Primary care physician: Sushila Watts DO Consults: 07/20/23 18:03 Consult to Cardio/Pulmonary Rehabilitation Routine Comment: Physician Instructions: Evaluate and treat Discharge provider: Brandin Fonseca DO Summary Hospital Course Discharge Diagnosis: 1. Acute hypoxic respiratory failure, present on admission and active. 2. Probable COPD exacerbation, present on admission and active. 3. Acute diastolic heart failure and R heart failure/cor pulmonale present on admission and active. 4. Remote history of tobacco dependence having quit 24 years ago. Not present on admission and active. Hospital Course: Admitted for COPD exacerbation. Patient smoked for 30+ years since age 12 and has no formal diagnosis of COPD. CTA chest showed mod-severe esphysema. Placed on abx, nebs and steroids and improved over 5 days. Also had LE edema and echo showed RV failure likely from cor pulmonale and volume overload. Given IV lasix and edema resolved. She remained on 2L NC despite treatment so, so was sent home with home oxygen at 2L all the time. She finished her steroids and abx, so was sent home on po lasix 40 daily, spiriva daily and albuterol PRN. She will obtain a referral from her PCP to see pulmonology. Exam Vital Signs (past 8 hours): - 07/25/23 05:08 07/25/23 08:08 07/25/23 09:10 Temperature 97 F L 98.1 F Pulse Rate 90 100 H 117 H Respiratory Rate 19 18 18 Blood Pressure 113/68 125/73 Pulse Oximetry 96 97 96 Oxygen Delivery Method Nasal Cannula Oxygen Flow Rate 3 3 2 Fraction of Inspired Oxygen 28 Fraction of Inspired Oxygen 28 SaO2/FiO2 Ratio 342 Oxygen Delivery Method Nasal Cannula Oxygen Flow Rate 2 Narrative Exam Narrative: NAD, alert and oriented. Fluent speech. Lungs are clear, normal rate and effort. She does have some rales but less than yesterday. Heart is regular, no murmur gallop or rub. Abdomen is soft, non distended. Extremities are with resolved pitting edema bilaterally to above the calves, improved significantly. Objective Labs 07/25/23 04:54 07/25/23 04:54 Labs: Laboratory Results - last 24 hr 07/25/23 04:54 WBC 7.0 RBC 4.74 Hgb 15.3 Hct 45.7 MCV 96.3 MCH 32.2 MCHC 33.4 RDW 15.4 H Plt Count 188 Neut % (Auto) 84.6 H Lymph % (Auto) 5.9 L [place] % (Auto) 9.0 Eos % (Auto) 0.1 L Baso % (Auto) 0.4 Neut # (Auto) 5900 Lymph # (Auto) 400 L [place] # (Auto) 600 Eos # (Auto) 0 Baso # (Auto) 0 Sodium 137 Potassium 3.7 Chloride 94 L Carbon Dioxide 39 H BUN 47 H Creatinine 0.98 Estimated GFR > 60 BUN/Creatinine Ratio 48.0 H Glucose 116 H Calcium 8.0 L Magnesium 2.0 PFSH Social History household members: none Smoking Status: Former smoker alcohol intake: never Discharge Plan Discharge Plan Patient Disposition: Home Provider Discharge Comment: I have prescribed lasix at a higher dose then you were taking before. I've also put you on a daily inhaler plus a rescue inhaler as needed. Please get a referral from your PCP to see pulmonology at [facility] for your COPD, as it is quite severe. This is why you will need 2L of oxygen at home all the time. Discharge orders & Medications Prescriptions: New albuterol sulfate 90 mcg/actuation HFA aerosol inhaler 1 inh inhalation QID PRN (Reason: shortness of breath or wheezing) Qty: 8.5 0RF Spiriva Respimat 2.5 mcg/actuation mist 2 inh inhalation DAILY Qty: 4 0RF furosemide [Lasix] 40 mg tablet 40 mg PO DAILY Qty: 30 0RF Discontinued furosemide [Lasix] 20 mg tablet 20 mg PO DAILY Qty: 5 0RF Follow up/Referrals: Sushila Watts DO [Primary Care Provider] - 1 Week Visit Report/Discharge Packet Stand Alone Forms: Patient Portal/API, Stroke Signs & Symptoms Discharge Data Primary Care Provider: Sushila Watts
--- NOTE | 2023-07-25 11:10 | CM.DPNOTE ---
DCP Note FUNERAL LOCATION MANAGER reviewed EMR. per hospitalist in morning multidisciplinary rounds, pt eager to dc home. Placing pulm referral and home with new home O2. FUNERAL LOCATION MANAGER met with pt in room. Pt confirms eager to dc home. Confirms plan is for friend Jeison to transport. Continues to deny HH. Deny other CM needs at this time. Plan: anticipate home today. Deny CM needs. Friend to transport. CM team will continue to follow as needed. Anita Chavira, MARCELO
== END 2023-07-25 12:45 | disposition home or self-care (01) | DRG 190 ==
LOC: ED 17:17 → AC 17:18
PROVIDERS: Internal Medicine; Admitting Provider Hospitalist; Emergency Provider Emergency Medicine; PCP Family Medicine; Referring Provider Family Medicine; Visit Provider Hospitalist
DX: J44.1 Chronic obstructive pulmonary disease with (acute) exacerbation (principal); I50.31 Acute diastolic (congestive) heart failure; J96.01 Acute respiratory failure with hypoxia; I27.81 Cor pulmonale (chronic); Z87.891 Personal history of nicotine dependence
CPT/HCPCS: 36415; 71045; 71275; 80048; 80053; 83605; 83735; 83880; 84484; 85025; 85610; 93005; 93010; 93306; 94618; 94640; 94762; 96365; 99284; J1644; J1940; J2919; Q9967

== ENCOUNTER → 2024-05-01 13:27 | Outpatient (CLI) | payer MEDICARE, MEDICAID, SELFPAY ==
[2023-07-20 18:24] VITALS: BMI 24.5
== END ==
PROVIDERS: PCP Family Medicine; Referring Provider Family Medicine; Visit Provider Family Medicine
DX: J43.9 Emphysema, unspecified (principal); Z99.81 Dependence on supplemental oxygen; Z87.891 Personal history of nicotine dependence; R09.02 Hypoxemia; R06.09 Other forms of dyspnea; R94.2 Abnormal results of pulmonary function studies
CPT/HCPCS: 94060; 94726; 94729

== ENCOUNTER → 2024-07-25 13:42 | Outpatient (CLI) | payer MEDICARE, MEDICAID, SELFPAY ==
[2023-07-20 18:24] VITALS: BMI 24.5
--- NOTE | 2024-07-25 13:44 | DI.ECHO.S_ITS ---
[facility]+ [facility] : : [id number] : : [place] : : [id number] : : Phone: [phone] Echocardiogram Report + + :Name: FACUNDO PITTS Study Date: 07/25/2024 Height: 61 in : :[facility] ReadingLocation: Weight: 103 lb : : Gender: Female BSA: 1.4 m2 : :: 1950 Age: 74 yrs BP: 133/83 mmHg: :Reason For Study: HEART FAILURE, PULMONARY HYPERTENSION : :Ordering Physician: CHIP, : :CAMI Performed By: Jerod Guillermo : :Referring: CAMI SAUNDERS : + + Interpretation Summary The left ventricle is normal in size. The ejection fraction is estimated to be 50-55%. Previous LVEF 45 to 50%. The interventricular septum is flattened, consistent with a right ventricular pressure/volume condition. The right ventricle is moderate to severely dilated. Previously severely dilated. Right ventricular systolic function is mild to moderately reduced. Previously severely reduced. The tricuspid annulus is dilated. There is moderate tricuspid regurgitation. Previously mild TR. Compared to the prior echo exam, there has been an increase in TR severity. The right ventricular systolic pressure is estimated to be at least 53 mmHg based on an estimated right atrial pressure of 3 mm Hg. Previously 59 mmHg. Procedure: A two-dimensional transthoracic echocardiogram with color flow and Doppler was performed. The study quality was technically adequate. Comparison is made with the echocardiogram of 07/21/2023. The patient was in normal sinus rhythm during the exam. Left Ventricle: The left ventricle is normal in size. There is normal left ventricular wall thickness. There is no thrombus. The ejection fraction is estimated to be 50-55%. The interventricular septum is flattened, consistent with a right ventricular pressure/volume condition. Diastolic parameters suggest a relaxation abnormality of the left ventricle, consistent with probable normal filling pressures. Right Ventricle: The right ventricle is moderate to severely dilated. Right ventricular systolic function is mild to moderately reduced. Atria: The left atrial size is normal. The right atrium is moderately dilated. There is no Doppler evidence for an atrial septal defect. Mitral Valve: The mitral valve leaflets appear mildly thickened, but open well. The mitral valve leaflets are mildly calcified. There is mild mitral regurgitation. Aortic Valve: The aortic valve is trileaflet. The aortic valve is slightly calcified. The aortic valve opens well. No aortic regurgitation is present. Tricuspid Valve: The tricuspid annulus is dilated. There is moderate tricuspid regurgitation. The right ventricular systolic pressure is estimated to be at least 53 mmHg based on an estimated right atrial pressure of 3 mm Hg. Compared to the prior echo exam, there has been an increase in TR severity. Pulmonic Valve: The pulmonic valve leaflets are thin and pliable; valve motion is normal. There is no pulmonic valvular regurgitation. Great Vessels: The aortic root is normal size. The ascending aorta could not be visualized. The pulmonary artery is normal size. The IVC is of normal diameter and collapses greater than 50% with a sniff. This suggests a low right atrial pressure of 3 mm Hg. Pericardium/ Pleura There is no pericardial effusion. There is no pleural effusion. MMode/2D Measurements & Calculations LVIDd: 4.1 cm LVOT diam: 2.0 cm LVIDs: 2.6 cm Ao root diam: 2.9 cm FS: 35.8 % EPSS: 0.46 cm IVSd: 0.94 cm LVPWd: 0.76 cm LV kaur. diameter/BSA (cm/m^2): 2.9 LV sys. diameter/BSA (cm/m^2): 1.9 LA A2 area: 12.3 cm2 RA long axis: 3.3 cm LA A4 area: 10.1 cm2 RA area: 10.2 cm2 LA length (vol): 4.1 cm RA vol: 27.0 ml LA vol: 25.6 ml RA : 18.9 ml/m2 LA vol index: 18.0 ml/m2 IVC diam: 1.4 cm RVD1 (basal): 4.1 cm RVD2 (mid): 2.9 cm TAPSE: 1.6 cm Doppler Measurements & Calculations Ao V2 max: 91.6 cm/sec LVOT Max Torin: 77.8 cm/sec Ao V2 mean: 65.1 cm/sec LV V1 max P.4 mmHg Ao max P.4 mmHg LV V1 VTI: 16.7 cm Ao mean P.8 mmHg PAUL(I,D): 3.1 cm2 Ao V2 VTI: 17.1 cm PAUL(V,D): 2.7 cm2 sev ratio: 0.98 PAUL indexed to BSA (cm^2/m^2): 2.2 MV E max torin: 56.7 cm/sec TR max torin: 355.3 cm/sec MV A max torin: 80.4 cm/sec TR max P.5 mmHg MV E/A: 0.70 PA V2 max: 91.0 cm/sec Med Peak E' Torin: 4.7 cm/sec PA V2 mean: 62.9 cm/sec E/E' med: 12.1 PA mean P.8 mmHg Lat Peak E' Torin: 8.4 cm/sec PA pr(Accel): 51.6 mmHg E/E' lat: 6.7 E/e' average: 9.4 MV dec time: 0.23 sec SV(LVOT): 53.1 ml Reading Physician:11:55 AM
== END ==
PROVIDERS: PCP Family Medicine; Referring Provider Internal Medicine Cardiovascular Disease; Visit Provider Internal Medicine Cardiovascular Disease
DX: I50.810 Right heart failure, unspecified (principal); I36.1 Nonrheumatic tricuspid (valve) insufficiency; I50.22 Chronic systolic (congestive) heart failure; I27.20 Pulmonary hypertension, unspecified; I51.7 Cardiomegaly; I07.1 Rheumatic tricuspid insufficiency
CPT/HCPCS: 93306